=== PATIENT | female | born 1980 | race African-American/Black ===

== ENCOUNTER 2025-01-27 10:55 | Outpatient (CLI) | payer BC, MEDICAID, SELFPAY ==
[2025-01-27 11:37] LABS: Hematocrit 23.2 % (37.0-47.0); Hemoglobin 7.0 g/dL (12.0-15.0); Immature Granulocyte Percent A 0.2 % (0-0.5); Lymphocytes Absolute Auto 0.94 K/mm3 (0.9-3.2); Mean Corpuscular HGB Conc 30.2 g/dl (32-36); Mean Corpuscular Hemoglobin 30.3 pg (26-34); Mean Corpuscular Volume 100.4 fl (80-100); Nucleated Red Blood Cells Absolute Auto 0.000 K/mm3 (0.0-0.012); Nucleated Red Blood Cells Perc 0.0 % (0.0-0.2); Platelet Count Result 148 k/mm3 (150-375); Red Blood Count 2.31 M/mm3 (4.2-5.4); White Blood Count 4.1 K/mm3 (4.5-10.0)
--- OUTSIDE RECORDS SUMMARY | 2025-01-27 11:43 | XMS_ITS | Encounter Summary ---
Author Organization [facility] Address [address] [facility] [address] [place] [address] Phone Care Team Providers Care Senior Technical Architect Name Role Phone Rahel Plasencia NP Primary Care Provider [phone] Daniele Wolf MD PhD Unavailable [phone] Juan C Oropeza DO Unavailable [phone] Lexi Meier MD PhD Unavailable [phone] Debby Vasquez MD Unavailable [phone] Unknown, Notinfile Primary Care Provider Unavail able Grace Veloz GIN OPERATOR Primary Care Provider Unknown, Notinfile Primary Care Provider Unavail able Encounter Details Date Type Department Care Team (Late st Contact Info) Description 02/13/2021 Social Work [facility] Medicine Physicians [facility] Oncology [facility] [place] [address] Jn Plummer LCSW Social History Tobacco Use Types Packs/Day Years Used Date Smoking Tobacco: Never Smokeless Tobacco: Never AUDIT-C Answer Date Recorded Q1: How often do you have a drink containing alc ohol? 2-4 times a month 02/13/2021 Q2: How many drinks containi ng alcohol do you have on a typical day when you are drinking? 5 or 6 02/13/2021 Q3: How often do you have si x or more drinks on one occasion? 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 Gender Identity Female 02/13/2021 12:55 PM CDT Sexual Orientation Not on file documented as of this encounter Functional Status documented as of this encounter Plan of Treatment Not on file documented as of this encounter Visit Diagnoses Not on filedocumented in this encounter Care Teams Senior Technical Architect Relationship Specialty Start Date End Date Rahel Plasencia, GIN OPERATOR [address] [place] [address] PCP - General Internal Medicine 12/06/20 05/27/22 Unknown, Notinfile PCP - General 05/28/22 07/08/22 Grace Veloz, WILLIAN [address] [place] [address] PCP - General Nurse Practitioner 07/09/22 06/11/23 Unknown, Notinfile PCP - General 06/13/23 Daniele Wolf MD PhD [address] [place] [address] Medical Oncologist/Senior Technical Support Engineer Medical Oncology 02/14/21 08/06/21 Juan C Oropeza DO [address] [place] [address] MEDICAL ONCOLOGY, [address] [address] Medical Oncologist/Senior Technical Support Engineer Hematology and Oncology 08/07/21 Lexi Meier MD PhD [address] [place] [address] Surgeon Surgical Oncology 10/18/21 Debby Vasquez MD [address] [place] [address] Radiation Oncologist Radiation Oncology 10/28/21 documented as of this encounter
--- OUTSIDE RECORDS SUMMARY | 2025-01-27 11:43 | XMS_ITS | Clinical Summary ---
Author Organization [facility] Care Team Providers Care Marketing Operations Consultant Name Role Phone Unavailable Primary Care Provider Unavailabl e Social History Tobacco Use Types Packs/Day Years Used Date Smoking Tobacco: Never Assessed Comments Unknown Sex and Gender Information Value Date Recorded Sex Assigned at Not on file Legal Sex Female 2:44 PM CDT Gender Identity Not on file Sexual Orientation Not on file Plan of Treatment Health Maintenance Due Date Last Done Comments Hepatitis C Virus (HCV) Screening 1980 TdaP Immunization 1980 Hepatitis B Immunization (1 of 3 - 19+ 3-dose series) 1999 Pap Smear 2001 Human Papillomavirus (HPV) Immunization (1 - 3-dose SCDM series) 2007 Cervical Cancer Screening (CCS) 2010 HPV/Cotest 2010 SARS-COV-2 Immunization (2023- season) 2024 Influenza Immunization (#1) 2025 Respiratory Syncytial Virus (RSV) Immunization (Adult) (1 - 1-dose 75+ series) 2055 Meningococcal Immunization (ACWY) Aged Out No longer eligible based on patient's age to complete this topic Pneumococcal Immunization Combined Aged Out No longer eligible based on patient's age to complete this topic Rotavirus Immunization Aged Out No lo nger eligible based on patient's age to complete this topic
--- OUTSIDE RECORDS SUMMARY | 2025-01-27 11:43 | XMS_ITS | Encounter Summary ---
Author Organization [facility] Address [address] [place] [address] Care Team Providers Care Pay Station Collector Name Role Phone Unavailable Primary Care Provider Unavailabl e Encounter Details Date Type Department Care Team (Late st Contact Info) Description 01/25/2025 External Device Data ST[facility] ABSTRACTION Provider, Abstract NO ADDRESS ON FILE Social History Tobacco Use Types Packs/Day Years Used Date Smoking Tobacco: Never Smokeless Tobacco: Never Alcohol Use Standard Drinks/Week Comments Yes 6 (1 standard drink = 0.6 oz pur e alcohol) Comments No Sex and Gender Information Value Date Recorded Sex Assigned at Not on file Legal Sex Female 4:01 PM CDT Gender Identity Not on file Sexual Orientation Not on file documented as of this encounter Plan of Treatment Not on file documented as of this encounter Visit Diagnoses Not on filedocumented in this encounter
--- OUTSIDE RECORDS SUMMARY | 2025-01-27 11:43 | XMS_ITS | Clinical Summary ---
Author Organization [facility] Address [facility] [place] [address] Care Team Providers Care Electronic Parts Designer Name Role Phone None, Provider MD Primary Care Provider Unavaila ble Allergies No known active allergies Medications medroxyPROGESTE [place] (PROVERA) 10 MG tablet Take 2 tablets (20 mg total) by mouth 2 (two) times daily for 5 days. 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 Gender Identity Female 01/24/2025 8:42 PM CDT Sexual Orientation Straight 01/24/2025 8: 42 PM CDT Last Filed Vital Signs Vital Sign Reading Time Taken Comments Blood Pressure 137/73 01/24/2025 11:05 PM CDT Pulse 92 01/24/2025 11:05 PM CDT Temperature 36.7 C (98 F) 01/24/2025 8:33 PM CDT Respiratory Rate 15 01/24/2025 11:05 PM CDT Oxygen Saturation 100% 01/24/2025 11:05 PM CDT Inhaled Oxygen Concentration - - Weight 77.1 kg (170 lb) 01/24/2025 8:33 PM CDT Height 172.7 cm (5' 8) 01/24/2025 8:33 PM CDT Body Mass Index 25.85 01/24/2025 8:33 PM CDT Plan of Treatment Health Maintenance Due Date Last Done Comments Annual Physical 1983 Hepatitis C 1998 HPV Vaccines (1 - 3-dose SCDM series) 2007 Cervical Cancer Screening Pap with HPV Testing (Age 30 to 64) Every 5 Years 2010 Hepatitis B Vaccines (3 of 3 - 3-dose series) 04/18/2014 02/21/2014, 08/24/1998 DTaP, Tdap and Td Vaccines (7 - Td or Tdap) 06/09/2023 06/09/2013, 02/15/1994, 11/23/1984, Additional history exists COVID-19 Vaccine () 02/08/2024 Mammogram Screening 06/16/2025 06/16/2023, Cervical Cancer Screening Pap Smear (Age 30 to 64) Every 3 Years 07/14/2026 07/14/2023, 02/12/2018 Cervical Cancer Screening with HPV 07/14/2026 Meningococcal B Vaccine Aged Out No l onger eligible based on patient's age to complete this topic Meningococcal Vaccine Aged Out No alina jennifer eligible based on patient's age to complete this topic Pneumococcal Vaccine: Pediatrics (0 to 5 Years) and At-Risk Patients (6 to 49 Years) Aged Out No longer eligible based on patient's age to complete this topic RSV Immunizations Under 20 Months Aged Out No longer eligible based on patient's age to complete this topic Procedures Procedure Name Priority Date/Time Associated Diagnosis Comments HC HCG QN STAT 01/24/2025 9:19 PM CDT BASIC METABOLIC PANEL STAT 01/24/2025 9:19 PM CDT CBC W/DIFF AUTOMATED STAT 01/24/2025 9:19 PM CDT TYPE & SCREEN STAT 01/24/2025 9:17 PM CDT from Last 3 Months Results * (ABNORMAL) BASIC METABOLIC PANEL (01/24/2025 9:19 PM CDT) GLUCOSE 154(H) 70 - 99 MG/DL 01/24/2025 9:53 PM CDT [facility] BUN 13 7 - 18 MG/DL 01/24/2025 9:53 PM CDT [facility] CREATININE S/P/B 1.02 0.55 - 1.02 MG/DL 01/24/2025 9:53 PM CDT [facility] SODIUM S/P/B 136 136 - 145 MMOL/L 01/24/2025 9:53 PM CDT [facility] POTASSIUM S/P/B 3.7 3.5 - 5.1 MMOL/L 01/24/2025 9:53 PM CDT [facility] CHLORIDE S/P/B 107 97 - 115 MMOL/L 01/24/2025 9:53 PM CDT [facility] CO2 24.6 21 - 32 MMOL/L 01/24/2025 9:53 PM CDT [facility] CALCIUM S/P/B 9.2 8.5 - 10.1 MG/DL 01/24/2025 9:53 PM CDT [facility] ANION GAP 4.4 2 - 10 MMOL/L 01/24/2025 9:53 PM CDT [facility] BUN CREATININE RATIO 12.7 6 - 26 01/24/2025 9:53 PM CDT [facility] GFR ESTIMATE 70(L) >90 ML/MIN/1.7 3 M2 01/24/2025 9:53 PM CDT [facility] Comment: NOTE: eGFR is not calculated for patients <18 years of age or gender unknown. This is an estimated GFR calculation using the new CKD EPI creatinine equation without race and so does not require a correction factor for race. This estimated GFR should not be used for calculating drug doses. 01/24/2025 9:19 PM CDT [facility] Final Result Performing Organization Address [facility] Co de Phone Number [facility] [address] [place] [address], * Quantitative HCG (01/24/2025 9:19 PM CDT) HCG QUANTITATIVE <1 MIU/ML 01/25/20 10:22 PM CDT [facility] Comment: WEEKS OF REFERENCE RANGES Non- female < or = 2 0.2 - 1 5 - 50 1 - 2 50 - 500 2 - 3 100 - 5000 3 - 4 500 - 10,000 4 - 5 1000 - 50,000 5 - 6 10,000 - 100,000 6 - 8 15,000 - 200,000 2 - 3 MONTHS 10,000 - 100,000 01/24/2025 9:19 PM CDT [facility] Final Result Performing Organization Address [facility] Co de Phone Number [facility] [address] [place] [address], * (ABNORMAL) CBC W/DIFF AUTOMATED (01/24/2025 9:19 PM CDT) WBC 7.16 4.5 - 11.0 x10'3/uL 01/24/2025 9:30 PM CDT [facility] RBC 2.70(L) 4.20 - 5.40 x10'6/uL 01/24/2025 9:30 PM CDT [facility] HGB 8.2(L) 12.0 - 16.0 G/DL 01/24/2025 9:30 PM CDT [facility] HCT 25.7(L) 38.0 - 48.0 % 01/24/2025 9:30 PM CDT [facility] MCV 95.2 81.0 - 99.0 FL 01/24/2025 9:30 PM CDT [facility] MCH 30.4 27.0 - 31.0 PG 01/24/2025 9:30 PM CDT [facility] MCHC 31.9(L) 32.0 - 36.0 G/DL 01/24/2025 9:30 PM CDT [facility] RDW 14.3 11.5 - 14.5 % 01/24/2025 9:30 PM CDT [facility] PLT 220 130 - 400 x10'3/uL 01/24/2025 9:30 PM CDT [facility] MPV 11.0 9.3 - 12.2 FL 01/24/2025 9:30 PM CDT [facility] DIFFERENTIAL TYPE AUTOMATED DIFFERENTIAL 01/24/2025 9:30 PM CDT [facility] NEUTROPHILS % 78.4 % 01/24/2025 9:30 PM CDT [facility] LYMPHOCYTES % 14.5 % 01/24/2025 9:30 PM CDT [facility] MONOCYTES % 5.6 % 01/24/2025 9:30 PM CDT [facility] EOSINOPHILS 0.8 % 01/24/2025 9:30 PM CDT [facility] BASOPHILS 0.3 % 01/24/2025 9:30 PM CDT [facility] IMMATURE GRANS % 0.4 % 01/25/20 9:30 PM CDT [facility] ABS. NEUTROPHILS 5.61 1.80 - 7.70 x10'3/uL 01/24/2025 9:30 PM CDT [facility] ABS. LYMPHOCYTES 1.04 1.00 - 4.80 x10'3/uL 01/24/2025 9:30 PM CDT [facility] ABS. MONOCYTES 0.40 0.24 - 0.86 x10'3/uL 01/24/2025 9:30 PM CDT [facility] ABS. EOSINOPHILS 0.06 0.04 - 0.36 x10'3/uL 01/24/2025 9:30 PM CDT [facility] ABS. BASOPHILS 0.02 0.01 - 0.08 x10'3/uL 01/24/2025 9:30 PM CDT [facility] ABS. IMMATURE GRANULOCYTES 0.03 0.00 - 0.49 x10'3/uL 01/24/2025 9:30 PM CDT [facility] 01/24/2025 9:19 PM CDT [facility] Final Result [facility] [address] [place] [address], * TYPE & SCREEN (01/24/2025 9:17 PM CDT) ABO/RH A POSITIVE 01/24/2025 10:22 PM CDT [facility] ANTIBODY SCREEN NEGATIVE 01/24/2025 10:22 PM CDT [facility] SAMPLE EXPIRATION 01/27/2025,2 359 01/24/2025 10:22 PM CDT [facility] 01/24/2025 9:17 PM CDT us [facility] TEST ORDERABLES Fin al Result [facility] [address] [place] [address], [place] [phone] from Last 3 Months Insurance MEDICAID Care Teams Electronic Parts Designer Relationship Specialty Start Date End Date None, Provider, PCP - General UNKNOWN PHYSICIAN SPECIALTY 01/24/25
--- OUTSIDE RECORDS SUMMARY | 2025-01-27 11:43 | XMS_ITS ---
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 Overview (07/14/2023): HR HPV + (non 16/18) on 06/2023, cytology not adequate for interpretation Repeat pap test collected 07/14/2023 Patient desires 07/14/2023 Overview (07/14/2023): - reports desires , has been trying for 6 months - reports regular periods - discussed OPKs and further evaluation at next visit - stressed importance of ensuring breast cancer in remission prior to conceiving, previously lost to follow up Well woman exam with routine gynecological exam 06/12/2023 Overview (06/25/2023): .Recommended screenings and preventive care discussed: Reviewed general breast health: Self Breast Exams Mammogram Annually after age 40: N/A-current treatment for breast cancer Pap w/reflex HPV: 06/26/2021- NILM, neg HPV (records in Media tab) NG/CT/Trich: Ordered HIV/HepC/RPR: Declined Contraception reviewed. Patient plans: CBC/CMP/Lipid Panel/HgbA1C/TSHdeclined. Primary labs per PCP. Diet and exercise discussed. Calcium and vitamin D intake discussed. Osteoporosis with DEXA Scan: N/A Colonoscopy/Cologard: N/A < 45 yo Follow up in 1 year of sooner if needed. Autoimmune hepatitis 08/29/2022 Type 1 diabetes mellitus without complication Assessment & Plan (07/09/2022 2:43 PM CORPORATE INVESTIGATOR): This is a chronic condition which is at goal of less than 7%. But with severe hyperglycemia at times. Personally reviewed most recent A1c - Lab Results Component Value Date HGBA1C 6.4 (H) 01/26/2021 Personally reviewed POC blood sugar- 575, not at goal 80-180 Medication- Continue [employer] Relion insulin / syringes NPH-24 units in am, orpizbe-11-24 depending on her blood sugar, NPH 7-10 units in pm with Regular insulin 15 units. She does not want to change insulin regimen at this time. Discussed trying a flatter longer acting insulin such as tresiba in the future. Monitor blood sugar 2x times a day and will proceed with RoleStarstyle Fox 3 sensor. Encouraged annual eye exam. Eye exam is needed Monofilament foot exam completed. protective senses intact Urine microalbumin/creatinine ratio - not at goal <30 not treated with LYNDA/ARB Personally review CMP, [id number] Kidney function- normal B/P today- at goal of <140/90. continue LYNDA/ARB Personally reviewed lipid panel. at Goal of less than 70. Continue Chemotherapy-induced neutropenia 03/20/2021 Antineoplastic antibiotics c ausing adverse effect in therapeutic use 03/20/2021 Persons encountering health services in other specified circumstances 01/24/2021 Malignant neoplasm of upper- outer quadrant of left female breast 01/15/2021 Cancer Staging:Clinical stage from 08/10/2021:Stage IIIB(rcT3, cN0, cM0, G3, ER-, RI-, HER2-) - Signed by Juan C Oropeza DO on 08/10/2021 Abnormal mammography 12/18/2020 Breast mass 12/18/2020 Current Treatment and Therapy Plans No current plan information found. Past Treatment and Therapy Plans Line Care Plan Name Start Date Discontinue Date Treatment Medications Discontinue Reason Plan Provider IV MAINTENANCE THERAPY PLAN 08/30/2021 12/11/2022 No medications scheduled. Therapy Complete Juan C Oropeza DO Oncology Chemotherapy Treatment Plan Name Start Date Discontinue Date Treatment Medications Discontinue Reason Plan Provider Cycles Albumin-bound PACLItaxel (Abraxane) Weekly x 12 - Breast 02/21/20 21 06/13/2022 albumin-bound PACLItaxel (ABRAXANE) Patient Preference Daniele Wolf MD PhD 2 of 4 cycles started CARBOplatin / PACLitaxel weekly x 12 doses followed by: Dose-Dense AC: DOXOrubicin (ADRIAMYCIN) / Cyclophosphamide 02/21/20 21 02/06/2021 albumin-bound PACLItaxel (ABRAXANE)CAR BOplatin (PARAPLATIN)c ycloPHOSphami de (CYTOXAN)DOXO rubicin (ADRIAMYCIN) Provider Discretion Daniele Wolf MD PhD Treatment not started Radiation Treatments * Course C1 LCW 202111/08/2021 - 12/04/2021 Treatment Period Energy Fraction Dose Fractions Total Dose Plans Planned LCW B+ 11/08/2021 - 12/04/2021 200 5 / 2,600 LCW B- 11/09/2021 - 12/03/2021 200 4 / 2,400 Reference Points Delivered SHEEHAN DPV 11/08/2021 - 12/04/2021 1,800 Lifetime Dose Tracking * Chemical Lifetime Dose Automatic Entry Manual Entr y Fluoro Time 0.2 minutes 0.2 minutes 0 minutes DLP 1,351 mGycm 1,351 mGycm 0 mGycm Resolved Problems Problem Noted Date Diagnosed Date Resolved Date , twins 06/24/2013 07/09/2022 Diabetes mellitus during pre gnancy, antepartum 05/10/2013 07/09/2022 Low grade squamous intraepit helial lesion (LGSIL) on cervicovaginal cytologic smear 04/19/2011 06/25/2023
--- OUTSIDE RECORDS SUMMARY | 2025-01-27 11:43 | XMS_ITS | Clinical Summary ---
Author Organization [facility] Address [facility] [place] [address] Care Team Providers Care [place] Actor Name Role Phone Juan C Oropeza DO Unavailable [phone] AftLexi MD PhD Unavailable [phone] Debby Vasquez MD Unavailable [phone] Unknown, Notinfile Primary Care Provider Unavail able Allergies Active Allergy Reactions Criticality Noted Date Comments Adhesive Rash Medium 01/24/2021 Bee Pollen Urticaria High 12/18/2020 Pollen Extracts Hives Medium 12/18/2020 Medications ibuprofen (ADVIL,MOTRIN) 200 mg tab/capIndication s:Pain Take 2 tablet/capsule (400 mg total) by mouth every 8 (eight) hours as needed for pain 02/29/20 20 Active acetaminophen (TYLENOL) 325 mg tabletIndications :Pain Take 2 tablets (650 mg total) by mouth every 4 (four) hours 30 tablet 10/04/19 22 Active Additional Information Patient taking differently:650 mg oralEvery 6 hours PRN, pain, Indications: Pain, Informant: Self, Reported on 06/12/2023 cetirizine (ZyrTEC) 10 mg capsuleIndication s:Seasonal Allergic Rhinitis Take 1 tablet by mouth daily as needed (allergies) Active omega-3/dha/epa/d pa/fish oil (OMEGA-3 2100 ORAL)Indications: supplement Take 1 tablet by mouth every morning Active mv,calcium,min/ir on/folic/vitK (MULTI FOR HER ORAL)Indications: supplement Take 1 tablet by mouth every morning Active DIETARY SUPPLEMENT ORALIndications:s upplement Take 4 tablets by mouth nightly Nutrafol Women- for hair Active insulin regular (HumuLIN R, NovoLIN R) 100 unit/mL vial for injectionIndicati ons:type 1 diabetes mellitus Take 10-15 units twice daily before breakfast and dinner depending on blood sugar. E10.9 20 mL 11 07/09/19 23 Active Additional Information Patient taking differently: 15 Units subcutaneous 2 times daily before meals (bkfst, lunch), Take 10-15 units twice daily before breakfast and dinner depending on blood sugar. E10.9, Indications: type 1 diabetes mellitus, Informant: Self, Reported on 07/30/2022 FreeStyle Fox 3 Sensor device 1 Device continuously Change every 14 days. E10.65 6 each 3 07/09/19 Active azaTHIOprine (IMURAN) 50 mg tablet 08/09/19 Active predniSONE (DELTASONE) 10 mg tablet 08/09/19 Active blood glucose diagnostic stripIndications: Type 1 diabetes mellitus with hyperglycemia (HCC) 1 each by other route 4 (four) times a day 400 each 3 08/30/19 Active insulin NPH (HumuLIN N, NovoLIN N) 100 unit/mL (3 mL) pen for injectionIndicati ons:type 2 diabetes mellitus Inject NPH 24 units in the a.m. and 7-10 units in the p.m. depending on blood sugar. E10.9 20 mL 11 04/11/20 Active vitamin ferrous fumarate-folic () 28 mg iron- 800 mcg tablet Take 1 tablet by mouth daily 1 po qd 90 tablet 3 11/24/19 24 Active Active Problems Problem Noted Date Diagnosed Date [...] complication Assessment & Plan (07/09/2022 2:43 PM [employer]): This is a chronic condition which is at goal of less than 7%. But with severe hyperglycemia at times. Personally reviewed most recent A1c - Lab Results Component Value Date HGBA1C 6.4 (H) 01/26/2021 Personally reviewed POC blood sugar- 575, not at goal 80-180 Medication- Continue Esther Relion insulin / syringes NPH-24 units in am, sfqksre-52-77 depending on her blood sugar, NPH 7-10 units in pm with Regular insulin 15 units. She does not want to change insulin regimen at this time. Discussed trying a flatter longer acting insulin such as tresiba in the future. Monitor blood sugar 2x times a day and will proceed with freestyle Fox 3 sensor. Encouraged annual eye exam. 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) on cervicovaginal cytologic smear 04/19/2011 06/25/2023 Surgical History Surgery Date Site/Laterality Comments BREAST BIOPSY 12/26/2020 Left SECTION X3 PORT PLACEMENT CHEST >5 YEARS 02/08/2021 N/A PORT REMOVAL 03/12/2021 N/A US GUIDED BIOPSY LYMPH NODE SUPERFICIAL LEFT N/A MASTECTOMY Medical History Medical History Date Comments labor with delivery labor with delivery - (Added by TW Conv) Breast cancer (HCC) Abnormal Pap smear of cervix Irregular menses Type 1 diabetes (HCC) Anemia Lupus Cirrhosis (HCC) , twins 06/24/2013 Diabetes mellitus during pre gnancy, antepartum 05/10/2013 Family History Medical History Relation Name Comments Diabetes Father Cancer Maternal Grandfather Prostate cancer Maternal Grandfather Gallbladder disease Maternal Grandmother Heart disease Maternal Grandmother Hypertension Mother Endometriosis Other cousin Glaucoma Other great grandmoth er Hepatitis Other cousin Thyroid disease Other aunt Anesthesia problems Neg Hx Stroke Neg Hx Relation Name Status Comments Father Maternal Grandfather Maternal Grandmother Mother Other Social History Tobacco Use Types Packs/Day Years Used Date Smoking Tobacco: Never Smokeless Tobacco: Never Tobacco Cessation:Counseling Given: Not Answered AUDIT-C Answer Date Recorded Q1: How often do you have a drink containing alc ohol? 2-4 times a month 07/30/2022 Q2: How many drinks containi ng alcohol do you have on a typical day when you are drinking? 3 or 4 07/30/2022 Q3: How often do you have si x or more drinks on one occasion? Never 07/30/2022 Hunger Vital Sign Answer Date Recorded Within the past 12 months, y ou worried that your food would run out before you got the money to buy more. Never true 11/24/19 24 Within the past 12 months, t he food you bought just didn't last and you didn't have money to get more. Never true 11/24/2023 Personal Safety Answer Date Recorded Have you ever been in or are you currently in a harmful physical or emotional relationship or is someone making you feel afraid or unsafe? Denies 02/27/2024 Comments No Sex and Gender Information Value Date Recorded Sex Assigned at Not on file Legal Sex Female 9:11 PM [employer] Gender Identity Female 02/13/2021 12:55 PM CDT Sexual Orientation Not on file Obstetrics History Para Term AB IAB SAB Ectopic Multiple Livin g Live Births 16 8 1 7 8 8 2 8 Date Outcome GA Total Labor Labor/2nd/3rd Weight Sex Type Anes PTL Ernestina A1 A5 Name Clin Term SAB SAB SAB SAB SAB SAB SAB SAB Last Filed Vital Signs Vital Sign Reading Time Taken Comments Blood Pressure 159/92 02/27/2024 5:15 PM CDT Pulse 87 02/27/2024 5:15 PM CDT Temperature 36.8 C (98.3 F) 02/27/2024 5:15 PM CDT Respiratory Rate 18 02/27/2024 5:15 PM CDT Oxygen Saturation 100% 02/27/2024 5:15 PM CDT Inhaled Oxygen Concentration - - Weight 78 kg (172 lb) 03/16/2024 9:46 AM CDT Height 172.7 cm (5' 8) 03/16/2024 9:46 AM CDT Body Mass Index 26.15 03/16/2024 9:46 AM CDT Plan of Treatment Health Maintenance Due Date Last Done Comments Depression Screening 1980 Hepatitis C Screening 1980 Dilated Eye Exam 1990 DTaP/Tdap/Td Vaccine (1 - Tdap) 1991 Varicella Vaccines (1 of 2 - 13+ 2-dose series) 1993 Hepatitis B Screening 1998 Pneumococcal vaccine <65 (1 of 2 - PCV) 1999 Zoster Vaccine (1 of 2) 1999 HPV Vaccines (1 - 3-dose SCD M series) 2007 TSH Level 05/24/2022 05/24/2021, 01/26/2021 Foot Exam 07/09/2023 07/09/2022 Albumin Creatinine Ratio, Urine 08/30/2023 Regular Well Visit/Exam 18-64 06/12/2024 06/12/2023 Breast Cancer Screening-Mammogram 06/16/2024 024 Cervical Cancer Screening 07/14/20242023, 06/12/2023, 06/12/2023 Hemoglobin A1C 07/17/2024 01/15/2024, 11/07, 07/30/2022, Additional history exists Lipid Panel 10/13/2024 10/14/2023, 07/0 12/2021, 12/13/2021 Influenza Vaccine (#1) 2025 eGFR 02/26/2025 02/27/2024, 11/07, 06/12/2023, Additional history exists Medical Devices Implanted Type Area Operation Supervisor Device Identifier Shelf Expiration Date Model / Serial / Lot [employer] [id number] Xcela 8fr 1.6mm 1 Lumen Power Injectable Attach Catheter Fill - [id number] Implanted:Qty: 1 on 02/08/2021 at [facility] Explanted:2021 (Quantity not on file) [employer] [id number] 10/09/2025 [id number] / / [id number] Procedures Procedure Name Priority Date/Time Associated Diagnosis Comments EGFR STAT 02/27/2024 12:32 PM CDT HEMOGLOBIN A1C Routine 11/24/2023 2:34 PM CDT Infertility counseling PAP ONLY Routine 07/14/2023 1:45 PM [employer] HPV in female SCREENING MAMMOGRAM RIGHT W GAVINO UNILATERAL ONLY Schedule Routine, Read Routine (OP Routine) 06/16/2023 3:26 PM [employer] Malignant neoplasm of upper-outer quadrant of left breast in female, estrogen receptor negative (HCC) Encounter for screening mammogram for breast cancer ALBUMIN CREATININE RATIO, URINE Routine 08/29/2022 2:20 PM CDT Type 1 diabetes mellitus with hyperglycemia (HCC) LIPID PANEL Routine 12/13/2021 TSH Routine 01/26/2021 4:04 PM CDT Thyroid disorder screening from Last 3 Months or Most Recently Relevant to Health Maintenance Results * eGFR (02/27/2024 12:32 PM CDT) eGFR >90 >=60 mL/min/1. 73 m2 Comment: Interpretive Data Reference Interval Normal >/= 90 mL/min/1.73m2 Mildly decreased* 60 - 89 mL/min/1.73m2 Mildly to moderately decreased 45 - 59 mL/min/1.73m2 Moderately to severely decreased 30 - 44 mL/min/1.73m2 Severely decreased 15 - 29 mL/min/1.73m2 Kidney Failure < 15 mL/min/1.73m2 *Relative to young adult level Estimated glomerular filtration rate is determined by the 2020 CKD-EPI equation recommended by the National Kidney Foundation (A Unifying Approach to GFR Estimation: Recommendations of the NKF-ASK Task Force on Reassessing the Inclusion of Race in Diagnosing Kidney Disease, JASN 2020). The CKD-EPI equation should not be used for patients with unstable renal function and has not been validated in children and those over 70. Current interpretive data was last reviewed 2021. Testing performed by: [facility], [address] [place] [address]., [address] Blood 02/27/2024 12:3 2 PM CDT 02/27/2024 1:08 PM CDT us Winnie CANELA LAB BLOOD ORDERABLES F inal Result [facility] [address] [facility] Department [place] [address] * (ABNORMAL) Hemoglobin A1c (11/24/2023 2:34 PM CDT) Hgb A1C 8.8(H) 4.0 - 5.6 % Estimated Average Glucose 206 mg/dL [facility] Comment: The ADA recommends reporting an estimated Average Glucose (eAG) with all Hemoglobin A1c results using the equation derived from a study of 507 normal and diabetic adults. Minority populations were underrepresented and children were not included. (Diabetes Care 2020; 43(S1): S66-S76). The eAG is not equivalent to a fasting glucose. Blood 11/24/2023 2:34 PM CDT 11/24/2023 3:59 PM CDT us Katiana Varela MD LAB BLOOD ORDERA BLES Final Result [facility] Department [place] [address] * (ABNORMAL) Pap Only (Cytology Component) (07/14/2023 1:45 PM [employer]) Thin prep (Pap test) 07/14/2023 1:45 PM [employer] 07/14/2023 3:13 PM [employer] Narrative PATHOLOGY [facility] - 07/22/2023 3:08 PM [employer] EPIC results best viewed via link to PDF [facility] Winnie Angulo [facility] [place] [address] Note to Patients: This report may contain a detailed description of human tissue sent by a health care provider to the laboratory for pathologic evaluation. The content of this report is essential for diagnosis and may provide important critical findings. This information may be unfamiliar to patients to review without a medical professional present. It is advised that the patient review this report in the presence of a health care provider who can answer questions and explain the details. CYTOPATHOLOGY REPORT FINAL Patient Name: MACK DUMONT Gender: F : 1980 (Age: 42) Address: [address] [place] [id number] Hospital #: [id number] Service: SUPERINTENDENT SYSTEM OPERATION Location: Patient Type: [facility] SPECIMEN Taken: 07/14/2023 Received: 07/14/2023 Accessioned: 07/16/2023 Reported: 07/22/2023 Physician(s): Mae Brady MD FINAL INTERPRETATION SOURCE OF SPECIMEN Liquid based Thin Prep pap: STATEMENT OF ADEQUACY - Satisfactory for evaluation - Endocervical cells/transformation zone sample present GENERAL CATEGORIZATION: - Epithelial cell abnormality INTERPRETATION: - Atypical squamous cells of undetermined significance js/07/22/2023 09:21 By this signature, I attest that the above diagnosis is based upon my personal examination of the slides(and/or other material indicated in the diagnosis). Hao Jaimes M.D. Report Electronically Reviewed and Signed Out By Hao Jaimes M.D. 07/22/2023 15:08:22 ANCELMO Carbajal(ASCP), [facility] Cervicovaginal Cytology (Pap Test) Disclaimer: The Pap test is a screening test used to detect cervical cancer and its precursors; it is not a diagnostic procedure. False negative and false positive results do occur. Pap test results should be interpreted in the context of pertinent clinical information and biopsy results as indicated. [facility] Clinical Laboratory Improvement Amendments (CLIA) mandate that cytologic and histologic results be correlated for laboratory software quality tester & improvement standards. FOR ALL HIGH-GRADE CASES we request submission of follow-up histological material and/or reports that have not been previously provided so that we may fulfill said required standards. Gross Description A. Liquid based Thin Prep pap: Cervical/vaginal - Screening ThinPrep Clinical Diagnosis and History Last Menstrual Period: 07/10/23 Menstrual History: Regular Cycles Previous Atypia: Yes The patient is a 42 year old woman with HR HPV positive on 06/2023, cytology not adequate. Report Images and scanned documents, if included only viewable in PDF version The performance characteristics of some immunohistochemical stains, in-situ hybridization and fluorescence in-situ hybridization tests and immunophenotyping by flow cytometry cited in this report (if any) were determined by the Surgical Pathology Department at [facility] as part of an ongoing quality control engineer program and in compliance with federally mandated regulations drawn from the Clinical Laboratory Improvement Act of 1988 (CLIA '88). Some of these tests rely on the use of analyte specific reagents and are subject to specific labeling requirements by the US Food and Drug Administration. Such diagnostic tests may only be performed in a facility that is certified by the Department of Health and Human Services as a high complexity laboratory under CLIA '88. The FDA has determined that such clearance or approval is not necessary. This test is used for clinical purposes. It should not be regarded as investigational or for research. Nevertheless, federal rules concerning the medical use of analyte specific reagents require that the following disclaimer be attached to the report: This test was developed and its performance characteristics determined by the Surgical Pathology Department of [facility]. It has not been cleared or approved by the U. S. Food and Drug Administration. us Mae Brady MD LAB CYTOLOGY ORDERABLE S Final Result PATHOLOGY [facility] 3rd Floor [place], [place] [phone] * Screening Mammogram Right W Gavino (06/16/2023 3:26 PM [employer]) Anatomical Region Laterality Modality Breast Right Mammography Impressions 06/16/2023 3:40 PM [employer] BI-RADS ATLAS category (right): 1 - Negative There is no mammographic evidence of malignancy. A 1 year screening mammogram is recommended. The patient has been or will be contacted. We recommend annual screening mammography for women at average risk of breast cancer beginning at age 40, based on guidelines of the [employer] (ACR Practice Parameter for the Performance of Screening and Diagnostic Mammography) and [employer]. For women with and elevated risk of breast cancer, please refer to the ACR Practice Parameter for specific screening recommendations. The patient will be entered into a reminder system with a target due date of 1 year for her next screening exam. Narrative 06/16/2023 3:40 PM [employer] Screening Mammogram Right W Gavino: 06/16/23 The study was acquired using full field digital technology and interpreted from soft copy. 2D digital mammographic views, as well as 3D digital tomosynthesis were performed in the CC and MLO projections. CLINICAL: Malignant neoplasm of upper-outer quadrant of left breast in female, estrogen receptor negative (HCC) Encounter for screening mammogram for breast cancer. Medical history includes breast cancer. No known family history of breast cancer. COMPARISONS: 12/04/2020 Screening Mammogram Bilateral W Gavino BREAST TISSUE: The right breast is extremely dense, which lowers the sensitivity of mammography. FINDINGS: No suspicious findings are identified in the right breast on mammogram. Juan C Oropeza DO IMG MAMMO PROCEDURES Final R esult * Albumin Creatinine Ratio, Urine (08/29/2022 2:20 PM CDT) Microalb, Ur 20.5 0.0 - 22.9 mg/L [facility] Random Urine Creatinine 136.7 mg/dL [facility] Microalb/Creat Ratio 15.0 0.0 - 29.9 mg/g [facility] Urine 08/29/2022 2:20 PM CDT 08/29/2022 3:44 PM CDT Moose Morris Jr., MD LAB URINE ORDERABLES Final Result Performing Organization Address [place]/ZIP Co de Phone Number [facility] * (ABNORMAL) Lipid panel (12/13/2021) SCRIBED Cholesterol, Total 171 0 - 200 EXTERNAL LAB SCRIBED HDL 82(A) 40 - 59 EXTERNAL LAB SCRIBED LDL 47 0 - 47 EXTERNAL LAB SCRIBED Triglycerides 210(A) 0 - 150 EXTERNAL LAB Blood 12/13/2021 Historical Provider LAB BLOOD ORDERABLES Latia l Result EXTERNAL LAB * TSH (01/26/2021 4:04 PM CDT) Thyroid Stimulating Hormone 0.65 0.30 - 4.20 mcIUnit/mL [facility] Comment:Testing performed by : [facility], [address] [place] [address], [address], [facility] [id number] Blood 01/26/2021 4:04 PM CDT 01/27/2021 7:54 AM CDT Beulah Singh MD LAB BLOOD ORDERABLES Final Re sult [facility] Organization Address City/State/ZIP Co de Phone Number [facility] Department [place] [address] from Last 3 Months or Most Recently Relevant to Health Maintenance Insurance [facility] OPEN [facility] Advance Directives For more information, please contact: [phone] * Full Code (Latest Code Status on File) Date Activated Date Inactivated Comments 10/02/2021 7:15 PM 10/03/2021 9:25 PM * Full Code Date Activated Date Inactivated Comments 02/08/2021 1:52 PM 02/08/2021 7:58 PM Care Teams [place] Actor Relationship Specialty Start Date End Date Unknown, Notinfile PCP - General 06/13/23 Juan C Oropeza DO [address] [place] [address] MEDICAL ONCOLOGY, [address] [id number] Medical Oncologist/Manager Imaging Hematology and Oncology 08/07/21 Aft, Lexi Sandoval MD PhD [address] [place] [address] Surgeon Surgical Oncology 10/18/21 Debby Vasquez MD [address] [place] [address] Radiation Oncologist Radiation Oncology 10/28/21
--- OUTSIDE RECORDS SUMMARY | 2025-01-27 11:43 | XMS_ITS | Clinical Summary ---
Author Organization [facility] [employer] [place] Address [address] [place] [address] Care Team Providers Care Supervisor Ornamental Ironworking Name Role Phone Unavailable Primary Care Provider Unavailabl e Allergies Active Allergy Reactions Criticality Noted Date Comments Adhesive Rash Medium 01/24/2021 Pollen Extracts Hives High 12/18/2020 Medications Insulin Syringe-Needle U-100 1 mL 31 gauge x 5/16 Syringe 12/19/19 19 Active insulin NPH human (HUMULIN N,NOVOLIN N) 100 unit/mL pen syringe Inject 25 Units by subcutaneous injection daily before supper. 25 units SQ every am, 10 units SQ every pm Active lancets Check accuchecks prior to meals and bedtime 50 Each 1 06/30/19 21 Active BD Aiyana 2nd Gen Pen Needle 32 gauge x 5/32 Needle USE DIRECTED TO INJECT INSULIN UP TO FIVE TIMES DAILY 08/25/19 21 Active insulin regular (HUMULIN R,NOVOLIN R) 100 unit/mL vial 10 units subq am, 10 units subq pm 05/08/20 20 Active blood sugar diagnostic StripIndications: Type 1 diabetes mellitus with hyperglycemia (CMS/HCC) Check accuchecks prior to meals and bedtime 100 Strip 05/22/20 21 Active Active Problems Problem Noted Date Diagnosed Date Anemia, chronic disease 01/01/2019 Type 1 diabetes mellitus without complication SLE (systemic lupus erythematosus) 09/01/2017 Autoimmune hepatitis 09/01/2017 Iron deficiency anemia 09/01/2017 Resolved Problems Problem Noted Date Diagnosed Date Resolved Date Severe diabetic hypoglycemia 07/04/2020 07/12/2024 Cutaneous abscess of face 07/04/2020 Cyst (solitary) of breast, left 01/26/2019 07/12/2024 Diabetes mellitus 09/01/2017 01/01/2019 Encounters Date Type Department Care Team Description 01/25/2025 External Device Data [facility] ABSTRACTION Provider, Abstract 01/11/2025 External Device Data [facility] ABSTRACTION Provider, Abstract 12/22/2024 External Device Data [facility] ABSTRACTION Provider, Abstract 12/21/2024 External Device Data [facility] ABSTRACTION Provider, Abstract 11/23/2024 External Device Data [facility] ABSTRACTION Provider, Abstract from Last 3 Months Immunizations Immunization Administration Dates Next Due (ADACEL/BOOSTRIX)(10 YR UP) TDAP VACCINE, 0.5ML, IM 06/09/2013 Hepatitis B Vaccine 02/21/2014 Family History Medical History Relation Name Comments No Known Problems Daughter 1 No Known Problems Daughter 2 No Known Problems Daughter 3 No Known Problems Daughter 4 No Known Problems Daughter 5 Unknown Father No Known Problems Half-Brother No Known Problems Half-Sister 1 No Known Problems Half-Sister 2 Prostate Cancer Maternal Grandfather Heart Disease Maternal Grandmother Unknown Mother Unknown Paternal Grandfather Unknown Paternal Grandmother No Known Problems Sister No Known Problems Son 1 Prematurity Son 2 No Known Problems Son 3 Relation Name Status Comments Daughter 1 Alive Daughter 2 Alive Daughter 3 Alive Daughter 4 Alive Daughter 5 Alive Father Alive Half-Brother Alive Half-Sister 1 Alive Half-Sister 2 Alive Maternal Grandfather Alive Maternal Grandmother Alive Mother Alive Paternal Grandfather Paternal Grandmother Sister Alive Son 1 Alive Son 2 Son 3 Alive Social History Tobacco Use Types Packs/Day Years Used Date Smoking Tobacco: Never Smokeless Tobacco: Never Tobacco Cessation:Counseling Given: Not Answered Alcohol Use Standard Drinks/Week Comments Yes 6 (1 standard drink = 0.6 oz pur e alcohol) Comments No Sex and Gender Information Value Date Recorded Sex Assigned at Not on file Legal Sex Female 4:01 PM CDT Gender Identity Not on file Sexual Orientation Not on file Last Filed Vital Signs Vital Sign Reading Time Taken Comments Blood Pressure 128/60 07/12/2024 3:05 PM SITE RELIABILITY ENGINEER Pulse 97 07/12/2024 3:05 PM SITE RELIABILITY ENGINEER Temperature 36.3 C (97.3 F) 07/12/2024 3:05 PM SITE RELIABILITY ENGINEER Respiratory Rate 16 06/18/2022 3:01 PM SITE RELIABILITY ENGINEER Oxygen Saturation 98% 07/12/2024 3:05 PM SITE RELIABILITY ENGINEER Inhaled Oxygen Concentration - - Weight 82.6 kg (182 lb) 07/12/2024 3:05 PM SITE RELIABILITY ENGINEER Height 172.7 cm (5' 8) 07/12/2024 3:05 PM SITE RELIABILITY ENGINEER Body Mass Index 27.67 07/12/2024 3:05 PM SITE RELIABILITY ENGINEER Plan of Treatment Health Maintenance Due Date Last Done Comments DIABETES ANNUAL RETINAL EXAM 1998 HEPATITIS B VACCINES (1 of 3 - 19+ 3-dose series) 1999 02/21/2014 DIABETES MICROALBUMIN ANNUAL SCREEN 07/04/2021 07/04/2020, 04/23/2019, 02/06/2018 LDL CHOLESTEROL ANNUAL 07/04/2021 , 10/21/2018, 02/10/2018, Additional history exists HPV/Cotest (21-29) 02/12/2023 02/12/2018 HPV/Cotest (30-65) 02/12/2023 02/12/2018 DTAP/TDAP/TD VACCINES (2 - Td or Tdap) 06/09/2023 06/09/2013 DIABETES ANNUAL FOOT EXAM 07/09/2023 07/09/2022, BREAST CANCER SCREENING 06/16/2024 06/16/19 24, 06/16/2023, 09/05/2021, Additional history exists INFLUENZA VACCINE (#1) 2025 05/21/2021 DIABETES HBA1C Q 6 MONTHS 02/26/20252024, 01/15/2024, 11/24/2023, Additional history exists CERVICAL CANCER SCREENING 07/14/2026 PAP SMEAR 07/14/2026 07/14/2023, 02/12/2018 HPV VACCINES Aged Out No longer eligi ble based on patient's age to complete this topic Procedures Procedure Name Priority Date/Time Associated Diagnosis Comments HEMOGLOBIN A1C Routine 05/21/2021 8:42 AM SITE RELIABILITY ENGINEER Type 1 diabetes mellitus with hyperglycemia (CMS/HCC) Malignant neoplasm of female breast, unspecified estrogen receptor status, unspecified laterality, unspecified site of breast (CMS/HCC) MAMMO 3D TATIANNA DIAGNOSTIC BILAT W OR WO CAD Routine 12/04/2020 MICROALBUMIN/CREATI NINE RATIO, RANDOM UR Routine 07/04/2020 10:16 AM SITE RELIABILITY ENGINEER Type 1 diabetes mellitus with hyperglycemia (CMS/HCC) LIPID PANEL Routine 07/04/2020 10:16 AM SITE RELIABILITY ENGINEER Type 1 diabetes mellitus with hyperglycemia (CMS/HCC) CERV/VAG CYTO SCREEN PAP W/HPV Routine 02/12/2018 8:05 AM CDT Bacterial vaginosis Cervical cancer screening from Last 3 Months or Most Recently Relevant to Health Maintenance Results * (ABNORMAL) HEMOGLOBIN A1C (05/21/2021 8:42 AM SITE RELIABILITY ENGINEER) HEMOGLOBIN A1C 6.3(H) <5.7 % of total Hgb [facility] Comment: For someone without known diabetes, a hemoglobin A1c value between 5.7% and 6.4% is consistent with prediabetes and should be confirmed with a follow-up test. For someone with known diabetes, a value <7% indicates that their diabetes is well controlled. A1c targets should be individualized based on duration of diabetes, age, comorbid conditions, and other considerations. This assay result is consistent with an increased risk of diabetes. Currently, no consensus exists regarding use of hemoglobin A1c for diagnosis of diabetes for children. Test [facility]formed [facility] [address] [place] [address] Ata Price D.O., MPH Blood 05/21/2021 8:42 AM SITE RELIABILITY ENGINEER 05/22/2021 7:52 AM SITE RELIABILITY ENGINEER Adryan Rojo MD CHEMISTRY ORDERABLES Final R esult [facility] [address] [place] [address] * MAMMO DIAG BILAT 3D TATIANNA W OR WO CAD (12/04/2020) Anatomical Region Laterality Modality Breast Bilateral Mammography Historical Provider MAMMO ORDERABLES Final Resul t * MICROALBUMIN/CREATININE RATIO, RANDOM UR (07/04/2020 10:16 AM SITE RELIABILITY ENGINEER) Creatinine, Urine 154.7 Not Estab. mg/dL [facility] MICROALBUMIN URINE 9.9 Not Estab. ug/mL [facility] MICROALBUMIN/CREA T RATIO, UR 6 0 - 29 mg/g creat [facility] Comment: Normal: 0 - 29 Moderately increased: 30 - 300 Severely increased: >300 Urine URINE SPECIMEN OBTAINED BY CLEAN CATCH PROCEDURE / Unknown 07/04/2020 10:16 AM SITE RELIABILITY ENGINEER 07/04/2020 Narrative [facility] - 07/05/2020 10:36 AM SITE RELIABILITY ENGINEER Performed at: [address] [id number] Water Hydrant Installer: Jarrod Martinez PhD, Phone: [phone] us Adryan Rojo MD URINE ORDERABLES Final Resul t Performing Organization Address [facility] Co de Phone Number [facility] [phone] * LIPID PANEL (07/04/2020 10:16 AM SITE RELIABILITY ENGINEER) CHOLESTEROL 167 100 - 199 mg/dL [facility] TRIGLYCERIDE 116 0 - 149 mg/dL [facility] HDL 59 >39 mg/dL [facility] VLDL CHOLESTEROL CALCULATED 21 5 - 40 mg/dL [facility] LDL CALCULATED 87 0 - 99 mg/dL [facility] Blood 07/04/2020 10:1 6 AM SITE RELIABILITY ENGINEER 07/04/2020 Narrative [facility] - 07/05/2020 10:36 AM SITE RELIABILITY ENGINEER Performed at: [address] [id number] Water Hydrant Installer: Jarrod Martinez PhD, Phone: [phone] us Rahel Plasencia NP CHEMISTRY ORDERABLES Fi nal Result Performing Organization Address City/[facility]/ZIP Co de Phone Number [facility] [phone] * CERV/VAG CYTO SCREEN PAP W/HPV (02/12/2018 8:05 AM CDT) DIAGNOSIS (PAP): Comment [facility] Comment:NEGATIVE FOR INTRAEP ITHELIAL LESION AND MALIGNANCY. ADEQUACY: Comment [facility] Comment: Satisfactory for evaluation. Endocervical and/or squamous metaplastic cells (endocervical component) are present. CLINICIAN PROVIDED ICD10 Comment [facility] Comment: N76.0 B96.89 N89.8 Z12.4 PERFORMED BY (PAP): Comment [facility] Comment:Indiana Steen, Cytotec hnologist (ASCP) RESULT (PAP): . [facility] SEE NOTE (PAP): Comment [facility] Comment: The Pap smear is a screening test designed to aid in the detection of premalignant and malignant conditions of the uterine cervix. It is not a diagnostic procedure and should not be used as the sole means of detecting cervical cancer. Both false-positive and false-negative reports do occur. CYTOLOGY LEAD CASTER HELPER METHODOLOGY Comment [facility] Comment: This liquid based ThinPrep(R) pap test was screened with the use of an image guided system. HPV HIGH RISK DETECTION Negative Negative [facility] Comment: This high-risk HPV test detects thirteen high-risk types (16/18/31/33/35/39/45/51/52/56/58/59/68) without differentiation. Genital SWAB OF ENDOCERVIX / Unknown 02/12/2018 8:05 AM CDT 02/13/2018 Narrative [facility] - 02/16/2018 4:35 PM CDT Performed at: 01 - [facility] [id number] Water Hydrant Installer: Aviva Ling MD, Phone: [phone] Performed at: 02 - [facility] [id number] Water Hydrant Installer: Aviva Ling MD, Phone: [phone] Specimen Comment: No. of containers..01 ThinPrep Vial Specimen Comment: No. of containers..01 Aptima Swab (White Label) us Rahel Plsaencia NP PATHOLOGY/CYTOLOGY DIA TUCKER Final Result [facility] from Last 3 Months or Most Recently Relevant to Health Maintenance Insurance [employer] [address] [place] [address] CHOICE * Guarantor: [employer] Account Type Relation to Patient Date of Phone Billing Address Corporate Employer ATTN: ELENA FLORES [address] [address] Advance Directives For more information, please contact: [phone] * Full Code (Latest Code Status on File) Date Activated Date Inactivated Comments 02/12/2019 8:22 AM 02/12/2019 12:01 PM
--- OUTSIDE RECORDS SUMMARY | 2025-01-27 11:43 | XMS_ITS | Encounter Summary ---
Author Organization [facility] Address [address] [facility] [address] [place] [address] Phone Care Team Providers Care Scrap Shear Operator Name Role Phone Rahel Plasencia NP Primary Care Provider Daniele Wolf MD PhD Unavailable [phone] Juan C Oropeza DO Unavailable [phone] Lexi Meier MD PhD Unavailable [phone] Debby Vasquez MD Unavailable [phone] Unknown, Notinfile Primary Care Provider Unavail able Grace Veloz LINOLEUM LAYER APPRENTICE Primary Care Provider Unknown, Notinfile Primary Care Provider Unavail able Encounter Details Date Type Department Care Team (Late st Contact Info) Description 01/29/2021 Telephone [facility] Oncology [address] [place] [address] [place] [address] [place] Sneed Social History Tobacco Use Types Packs/Day Years Used Date Smoking Tobacco: Never Smokeless Tobacco: Never AUDIT-C Answer Date Recorded Q1: How often do you have a drink containing alc ohol? 2-3 times a week 01/25/2021 Q2: How many drinks containi ng alcohol do you have on a typical day when you are drinking? 3 or 4 01/25/2021 Q3: How often do you have si x or more drinks on one occasion? Less than monthly 01/25/2021 Comments Unknown Sex and Gender Information Value Date Recorded Sex Assigned at Not on file Legal Sex Female 9:11 PM RETAIL AIDE Gender Identity Female 02/13/2021 12:55 PM CDT Sexual Orientation Not on file documented as of this encounter Plan of Treatment Not on file documented as of this encounter Visit Diagnoses Not on filedocumented in this encounter Care Teams Scrap Shear Operator Relationship Specialty Start Date End Date Rahel Plasencia, WILLIAN [address] [place] [address] PCP - General Internal Medicine 12/06/20 05/27/22 Unknown, Notinfile PCP - General 05/28/22 07/08/22 Grace Veloz NP [address] [place] [address] PCP - General Nurse Practitioner 07/09/22 06/11/23 Unknown, Notinfile PCP - General 06/13/23 Daniele Wolf MD PhD [address] [place] [address] Medical Oncologist/Firmware Test Engineer Medical Oncology 02/14/21 08/06/21 Juan C Oropeza DO [address] [place] [address] MEDICAL ONCOLOGY, [address] [address] Medical Oncologist/Firmware Test Engineer Hematology and Oncology 08/07/21 Lexi Meier MD PhD [address] [place] [address] Surgeon Surgical Oncology 10/18/21 Debby Vasquez MD [address] [place] [address] Radiation Oncologist Radiation Oncology 10/28/21 documented as of this encounter
[2025-01-27 12:01] LABS: Iron 42 ug/dL (37-170)
[2025-01-27 12:13] LABS: Percent Iron Saturation 14 % (20-50)
[2025-01-27 12:18] LABS: Beta HCG Quantitative < 2.39 mIU/ML
[2025-01-27 12:44] LABS: Ferritin 21.20 ng/mL (6.24-137); Thyroid Stimulating Hormone Reflex 0.916 uIU/mL (0.465-4.68)
[2025-01-28 07:09] LABS: FSH 1.5 mIU/mL (.)
[2025-02-02 22:08] LABS: Free Testosterone (Direct) <0.2 pg/mL (0.0-4.2)
[2025-02-04 02:07] LABS: Estradiol, Sensitive 6.2 pg/mL (.)
== END 2025-01-27 10:56 | disposition home or self-care (01) ==
LOC: ANHLAB 10:57
PROVIDERS: Visit Provider Obstetrics & Gynecology
DX: N93.9 Abnormal uterine and vaginal bleeding, unspecified (principal); N92.0 Excessive and frequent menstruation with regular cycle
CPT/HCPCS: 36415; 82166; 82670; 82728; 83001; 83540; 83550; 84144; 84146; 84402; 84403; 84443; 84702; 85025